=== PATIENT | female | born 1960 | race American Indian/Alaskan Native ===

== ENCOUNTER 2019-01-18 12:19 | Emergency (ER) | payer MEDICAID ==
--- NOTE | 2019-01-18 12:57 | Event Note ---
ED Screening Note ED Screening Note: pt states that she had a fall states that her knee gave out states she had a knee replacement by Dr. Guzman at [place] in September 2018 c/o right knee pain This initial assessment/diagnostic orders/clinical plan/treatment(s) is/are subject to change based on patients health status, clinical progression and re- assessment by fellow clinical providers in the ED. Further treatment and workup at subsequent clinical providers discretion. Patient/guardian urged not to elope from the ED as their condition may be serious if not clinically assessed and managed. Initial orders include: XR of the right knee
--- NOTE | 2019-01-18 13:44 | XRay Report ---
RIGHT KNEE 3 VIEW(S) INDICATION / CLINICAL INFORMATION: fall, right knee pain, hx of arthroplasty COMPARISON: None available. FINDINGS: Total knee arthroplasty is in satisfactory position and alignment without periprosthetic fracture or evidence of loosening or osteolysis. No acute abnormality seen. Signer Name: Alejandro Banks MD Signed: 01/18/2019 1:40 PM Workstation Name: [id number]
[2019-01-18] MEDS ORDERED: IBUPROFEN 600 MG TAB PO ONE (15:14)
[2019-01-18] MEDS ORDERED: ACETAMINOPHEN 325 MG TAB PO ONE (15:14)
--- NOTE | 2019-01-18 15:14 | Event Note ---
Date of service: 01/18/19 Face to Face: 58-year-old female presenting with right mechanical knee pain after mechanical fall. She is afebrile and clinically sober. Muscular compartments are soft. there is no facial droop. The tongue is midline. Extraocular movements are intact bilaterally. There is 5 out of 5 strength in bilateral upper and lower extremities. Sensation is intact to light touch bilateral upper and lower extremities. 2+ pulses noted in the bilateral upper and lower extremities. There is no palpable cord. negative Homans sign. Muscular compartments are soft. The pelvis is stable. X-ray knee shows no fracture or dislocation. Patient is neurovascularly intact. She does not appear to have an emergent medical condition at this time. She reports that she can tolerate ibuprofen and NSAIDs. Weightbearing as tolerated, crutches as needed, bulky Amador if needed, outpatient orthopedics or primary care follow-up Vital Signs 01/18/19 01/18/19 01/18/19 12:40 14:00 15:49 Temperature 97.6 F Pulse Rate 67 70 72 Respiratory 20 19 19 Rate Blood Pressure 108/38 Blood Pressure 110/68 112/72 [Left] O2 Sat by Pulse 97 97 97 Oximetry
--- NOTE | 2019-01-18 15:22 | Emergency Department Report ---
ED Fall HPI - General Chief Complaint: Fall Stated Complaint: FALL Time Seen by Provider: 01/18/19 12:56 Source: patient Mode of arrival: Ambulatory - History of Present Illness Initial Comments: 58 year old -[place] Citizen female presents to the emergency room complaining of frequent falls. Patient states she had fallen on she had fallen Sunday and a fall today. Patient reports that her knee just gave out. Patient reports that she had a total knee replacement 2019 sometime around March or April. Patient states she did go to physical therapy. She has had any recent follow-up. She reports she's been taking ibuprofen last dose was last night did not help. Patient reports her pain is 8 out of 10 on the right knee. She has a past medical history schizophrenia, anxiety and takes Seroquel and Xanax. Complaint: fall Onset/Timin -: days(s) When Fall Occurred: recurrent falls Fall Witnessed: no Place Fall Occurred: home Loss of Consciousness: none Prolonged Down Time?: no Location - Extremities: Right: Knee Severity: severe Severity scale (0 -10): 8 Quality: sharp Context: history of frequent falls Associated Symptoms: denies - Related Data Allergies Allergy/AdvReac Type Severity Reaction Status Date / Time aspirin AdvReac Hives Verified 01/18/19 12:39 ED Review of Systems ROS: Stated complaint: FALL Other details as noted in HPI Comment: All other systems reviewed and negative ED Past Medical Hx - Past Medical History Previous Medical History?: No - Surgical History Past Surgical History?: No - Social History Smoking Status: Current Every Day Smoker Substance Use Type: None ED Physical Exam - General Limitations: No Limitations General appearance: alert, in no apparent distress - Head Head exam: Present: atraumatic, normocephalic - Eye Eye exam: Present: normal appearance - ENT ENT exam: Present: mucous membranes moist - Neck Neck exam: Present: normal inspection - Respiratory Respiratory exam: Present: normal lung sounds bilaterally. Absent: respiratory distress - Cardiovascular Cardiovascular Exam: Present: regular rate, normal rhythm. Absent: systolic murmur, diastolic murmur, rubs, gallop - Expanded Lower Extremity Exam Right Knee exam: Present: tenderness. Absent: swelling, abrasion, laceration, ecchymosis, deformity Neuro vascular tendon exam: Present: no vascular compromise - Back Exam Back exam: Present: normal inspection - Neurological Exam Neurological exam: Present: alert, oriented X3 - Psychiatric Psychiatric exam: Present: normal affect, normal mood - Skin Skin exam: Present: warm, dry, intact, normal color. Absent: rash ED Course Vital Signs 01/18/19 12:40 Temperature 97.6 F Pulse Rate 67 Respiratory 20 Rate Blood Pressure 108/38 O2 Sat by Pulse 97 Oximetry ED Medical Decision Making - Radiology Data Radiology results: report reviewed Patient: CHRISTELLE JOHN MR#: [id number] : 1960 Acct:[id number] Age/Sex: 58 / F ADM Date: 01/18/19 Loc: ED Attending Dr: Ordering Physician: GUILLERMO FERNANDO Date of Service: 01/18/19 Procedure(s): XR knee 3V RT Accession Number(s): [id number] cc: GUILLERMO FERNANDO Fluoro Time In Minutes: RIGHT KNEE 3 VIEW(S) INDICATION / CLINICAL INFORMATION: fall, right knee pain, hx of arthroplasty COMPARISON: None available. FINDINGS: Total knee arthroplasty is in satisfactory position and alignment without periprosthetic fracture or evidence of loosening or osteolysis. No acute abnormality seen. Signer Name: Alejandro Banks MD Signed: 01/18/2019 1:40 PM Workstation Name: [id number] Transcribed By: DMB Dictated By: Alejandro Banks MD Electronically Authenticated By: Alejandro Banks MD Signed Date/Time: 01/18/19 1340 DD/ 1335 TD/TT: - Medical Decision Making 58 year old -[place] Citizen female presents to the emergency room complaining of frequent falls. Patient states she had fallen on she had fallen Sunday and a fall today. Patient reports that her knee just gave out. Patient reports that she had a total knee replacement 2019 sometime around March or April. Patient states she did go to physical therapy. She has had any recent follow-up. She reports she's been taking ibuprofen last dose was last night did not help. Patient reports her pain is 8 out of 10 on the right knee. She has a past medical history schizophrenia, anxiety and takes Seroquel and Xanax. Sprays were negative for any acute findings. Patient placed on crutches bulky dressing with Abdias bandage and to follow-up with her orthopedic provider. Discussed the patient she can take [id number] Tylenol and/or ibuprofen or Aleve for pain management. Critical care attestation.: If time is entered above; I have spent that time in minutes in the direct care of this critically ill patient, excluding procedure time. ED Disposition Clinical Impression: Severely overweight, Right anterior knee pain, Falls frequently Disposition: - TO HOME OR SELFCARE Is pt being admited?: No Does the pt Need Aspirin: No Condition: Stable Instructions: Arthralgia (ED), Fall Prevention (ED) Additional Instructions: You can take [id number] Tylenol and/or ibuprofen or Aleve for pain management. Follow-up with orthopedic provider the next 5-7 days if symptoms persist or gets worse. Please use crutches as shown. Referrals: Your ,Orthopedic [Other] - 3-5 Days
[2019-01-18 15:51] VITALS: BP 112/72
== END 2019-01-18 15:53 | disposition home or self-care (01) ==
LOC: ED 12:19
DX: M25.561 Pain in right knee (principal); W18.30XA Fall on same level, unspecified, initial encounter; Z91.81 History of falling; Y93.89 Activity, other specified; Y92.89 Other specified places as the place of occurrence of the external cause; Y99.8 Other external cause status

== ENCOUNTER 2019-07-25 13:50 | Emergency (ER) | payer MEDICAID ==
[2019-07-25 13:58] VITALS: BP 148/76
--- NOTE | 2019-07-25 14:05 | Emergency Department Report ---
ED Female HPI - General Chief complaint: Urogenital-Female Stated complaint: BACK PAIN Time Seen by Provider: 07/25/19 14:00 Source: patient Mode of arrival: Ambulatory Limitations: No Limitations - History of Present Illness Initial comments: pt is a 59 yo female who presents to the ED with c/o lower back pain that began a week ago. she has urinary frequency, urinary urgency. she has suprapubic pressure with urination. she denies any dark urine, odor to urine, or dysuria. she denies any fall or injury. she denies any numbness or weakness. she states she has been taking naproxen and aleve. PSHx total knee, appendectomy, cholecystectomy. PMHx asthma. allergy: aspirin. states she had normal BMs. - Related Data Previous Rx's Medication Instructions Recorded Last Taken Type Naproxen [Naprosyn TAB] 500 mg PO BID PRN #14 tablet 07/25/19 Unknown Rx methOCARBAMOL [Robaxin TAB] 500 mg PO BID PRN #12 tab 07/25/19 Unknown Rx Allergies Allergy/AdvReac Type Severity Reaction Status Date / Time aspirin AdvReac Hives Verified 07/25/19 13:51 ED Review of Systems ROS: Stated complaint: BACK PAIN Other details as noted in HPI Comment: All other systems reviewed and negative ED Past Medical Hx - Past Medical History Previous Medical History?: No - Surgical History Past Surgical History?: Yes Additional Surgical History: KNEE SURGERY - Social History Smoking Status: Current Every Day Smoker Substance Use Type: None - Medications Home Medications: Home Medications Medication Instructions Recorded Confirmed Last Taken Type Naproxen [Naprosyn TAB] 500 mg PO BID PRN #14 tablet 07/25/19 Unknown Rx methOCARBAMOL [Robaxin TAB] 500 mg PO BID PRN #12 tab 07/25/19 Unknown Rx ED Physical Exam - General Limitations: No Limitations General appearance: alert, in no apparent distress - Head Head exam: Present: atraumatic, normocephalic - Eye Eye exam: Present: normal appearance - ENT ENT exam: Present: mucous membranes moist - Neck Neck exam: Present: normal inspection, full ROM. Absent: tenderness - Respiratory Respiratory exam: Present: normal lung sounds bilaterally. Absent: respiratory distress, wheezes, rhonchi, stridor, chest wall tenderness, accessory muscle use, decreased breath sounds, prolonged expiratory - Cardiovascular Cardiovascular Exam: Present: regular rate, normal rhythm, normal heart sounds. Absent: systolic murmur, diastolic murmur, rubs, gallop - GI/Abdominal GI/Abdominal exam: Present: soft, normal bowel sounds. Absent: distended, tenderness, guarding, rebound, rigid - Back Exam Back exam: Present: normal inspection, full ROM, paraspinal tenderness (bilateral lumbar paraspinal muscular ttp, no midline C-spine, T-spine or L- spine ttp, no step offs, no deformities). Absent: CVA tenderness (R), CVA ten derness (L), vertebral tenderness - Neurological Exam Neurological exam: Present: alert, oriented X3, CN II-XII intact, normal gait. Absent: motor sensory deficit - Psychiatric Psychiatric exam: Present: normal affect, normal mood - Skin Skin exam: Present: warm, dry, intact ED Course Vital Signs 07/25/19 13:53 Temperature 98 F Pulse Rate 72 Respiratory 18 Rate Blood Pressure 148/76 O2 Sat by Pulse 95 Oximetry ED Medical Decision Making - Lab Data Lab Results 07/25/19 Range/Units 14:17 Urine Color Yellow (Yellow) Urine Turbidity Clear (Clear) Urine pH 6.0 (5.0-7.0) Ur Specific [place] 1.012 (1.003-1.030) Urine Protein <15 mg/dl (Negative) mg/dL Urine Glucose (UA) Neg (Negative) mg/dL Urine Ketones Neg (Negative) mg/dL Urine Blood Neg (Negative) Urine Nitrite Neg (Negative) Urine Bilirubin Neg (Negative) Urine Urobilinogen < 2.0 (<2.0) mg/dL Ur Leukocyte Esterase Neg (Negative) Urine WBC (Auto) < 1.0 (0.0-6.0) /HPF Urine RBC (Auto) < 1.0 (0.0-6.0) /HPF U Epithel Cells (Auto) 1.0 (0-13.0) /HPF - Medical Decision Making pt is a 59 yo female who presents to the ED with c/o lower back pain that began a week ago. she has urinary frequency, urinary urgency. she has suprapubic pressure with urination. she denies any dark urine, odor to urine, or dysuria. she denies any fall or injury. she denies any numbness or weakness. she states she has been taking naproxen and aleve. PSHx total knee, appendectomy, cholecystectomy. PMHx asthma. allergy: aspirin. states she had normal BMs. VSS. on exam: bilateral lumbar paraspinal muscular ttp, no midline C-spine, T-spine or L-spine ttp, no step offs, no deformities, no focal neuro deficits. UA is WNL. pt has no red flag warning signs of back pain, no trauma, no unexplained weight loss, no neuro deficits, no fever, no IVDU, no steroid use, no hx of cancer. pt given prescription for naproxen and robaxin. advised pt please take medication as prescribed. do not drive or operate heavy machinery while taking medication. may use ice pack, heating pad, rest, epsom salt bath. follow up with a primary care doctor. follow up with an orthopedic doctor. return to the emergency room for any new or worsening symptoms. Critical care attestation.: If time is entered above; I have spent that time in minutes in the direct care of this critically ill patient, excluding procedure time. ED Disposition Clinical Impression: Low back pain Qualifiers: Chronicity: acute Back pain laterality: bilateral Sciatica presence: without sciatica Qualified Code(s): M54.5 - Low back pain Disposition: TO HOME OR SELFCARE Is pt being admited?: No Does the pt Need Aspirin: No Condition: Stable Instructions: Low Back Strain (ED) Additional Instructions: please take medication as prescribed. do not drive or operate heavy machinery while taking medication. may use ice pack, heating pad, rest, epsom salt bath. follow up with a primary care doctor. follow up with an orthopedic doctor. return to the emergency room for any new or worsening symptoms. Prescriptions: Naproxen [Naprosyn TAB] 500 mg PO BID PRN #14 tablet PRN Reason: pain methOCARBAMOL [Robaxin TAB] 500 mg PO BID PRN #12 tab PRN Reason: pain Referrals: JACQUES ALBERT MD [Primary Care Provider] - 3-5 Days GUY NICHOLS MD [Staff Physician] - 3-5 Days [facility] [Provider Group] - 3-5 Days [facility] [Outside] - 3-5 Days [facility] [Outside] - 3-5 Days [facility] [Provider Group] - 3-5 Days Time of Disposition: 15:19 Print Language: UPPER SORBIAN
[2019-07-25 14:56] LABS: Bilirubin,Urine NEG (Negative); Blood,Urine NEG (Negative); Color,Urine Yellow (Yellow); Protein,Urine <15 mg/dL mg/dL (Negative); RBC,Urine < 1.0 /HPF (0.0-6.0); Urobilinogen,Urine < 2.0 mg/dL (<2.0); WBC,Urine < 1.0 /HPF (0.0-6.0)
== END 2019-07-25 15:26 | disposition home or self-care (01) ==
LOC: ED 13:50
DX: M54.5 Low back pain (principal); R35.0 Frequency of micturition; R39.15 Urgency of urination; F17.200 Nicotine dependence, unspecified, uncomplicated; Z88.6 Allergy status to analgesic agent; Z98.890 Other specified postprocedural states
CPT/HCPCS: 81001

== ENCOUNTER 2020-07-25 10:45 | Inpatient (IN) | payer MEDICAID ==
--- NOTE | 2020-07-25 11:04 | Emergency Department Report ---
HPI - General Time Seen by Provider: 07/25/20 10:57 - HPI HPI: 60-year-old female with history of schizophrenia and bipolar disorder brought in by EMS complaining of left facial pain and numbness as well as numbness of the left side of her body since yesterday afternoon. The patient's last known well time was at 2 PM yesterday. She says after that she took a nap and when she woke up she had hoarseness of her voice, left-sided facial pain and numbness, and left-sided numbness. She also says she has had new onset of a dry cough over the same period of time. Otherwise she denies experiencing any headache, visual changes, sore throat, dental pain, neck pain, chest pain, shortness of breath, abdominal pain, nausea/vomiting, dysuria, or any other complaints. ED Past Medical Hx - Past Medical History Previous Medical History?: Yes Additional medical history: Schizophrenia, Bipolar disorder - Surgical History Additional Surgical History: KNEE SURGERY - Social History Smoking Status: Current Every Day Smoker Substance Use Type: None - Medications Home Medications: Home Medications Medication Instructions Recorded Confirmed Last Taken Type Naproxen [Naprosyn TAB] 500 mg PO BID PRN #14 tablet 07/25/19 Unknown Rx methOCARBAMOL [Robaxin TAB] 500 mg PO BID PRN #12 tab 07/25/19 Unknown Rx ED Review of Systems ROS: Stated complaint: LEFT SIDE NUMBESS Other details as noted in HPI Physical Exam - Physical Exam Vital Signs: Vital Signs 07/25/20 11:49 Temperature 98.1 F Pulse Rate 60 Respiratory 20 Rate Blood Pressure 149/68 [l] O2 Sat by Pulse 97 Oximetry Physical Exam: GENERAL: Well developed and well nourished. No acute distress HEENT: Normocephalic. No obvious signs of trauma. Moist mucous membranes. EYES: Extraocular movements are intact. Pupils are equal round and reactive to light bilaterally NECK: Supple. Trachea is midline. LUNGS: Nonlabored breathing. Equal chest rise bilaterally. Clear to auscultation bilaterally. HEART/CARDIOVASCULAR: Regular rate and rhythm. No murmurs or rubs. ABDOMEN: Abdomen is soft and nondistended. There is no significant tenderness, guarding or rebound. SKIN: Skin is warm and dry NEURO: Patient is awake, alert, and oriented. ceo and founder II-XII grossly intact without any obvious facial droop. Hoarse sounding voice. There is left upper extremity drift as well as left lower extremity drift. There is loss of sensation to the left side of the face and left upper and lower extremities. NIHSS 6. MUSCULOSKELETAL: No obvious deformities. No significant tenderness. ED Medical Decision Making - Lab Data Result diagrams: 07/25/20 11:27 07/25/20 12:46 - EKG Data -: EKG Interpreted by De - EKG Data 07/25/20 12:02 Normal sinus rhythm. Normal axis. Normal intervals. No ectopy. No significant ST segment or T wave abnormalities. Low voltage EKG - Radiology Data CT head/brain wo con INDICATION: CODE STROKE Stroke symptoms LEFT SIDE WEAKNESS #[id number]. TECHNIQUE: Routine CT head without contrast. All CT scans at this location are performed using CT dose reduction for ALARA by means of automated exposure control. COMPARISON: None. FINDINGS: BRAIN / INTRACRANIAL CONTENTS: No acute hemorrhage, mass effect, midline shift, or hydrocephalus. No appreciable acute large territorial or lacunar infarct. No chronic infarct or focal atrophy. Normal brain volume and ventricular/sulcal size for age. Axial blood or fluid collection. ORBITS: No significant abnormality of visualized orbits. SINUSES / MASTOIDS: Near-complete opacification of the left maxillary antrum with subtle high attenuation could represent allergic fungal sinusitis. Mild mucosal thickening in the right maxillary antrum and sphenoid sinus. Patchy opacification of the left ethmoidal air cells. Mastoid air cells are clear. ADDITIONAL FINDINGS: None. IMPRESSION: 1. No acute intracranial abnormality. Consider further evaluation with noncontrast MR, as warranted. CRITICAL RESULT: Time of Discovery (FACILITY MAINTENANCE HELPER/CDT): 1030 Time of Communication (FACILITY MAINTENANCE HELPER/CDT): 1035 Licensed Practitioner Receiving Report: Dr. Gautam Valdovinos Read-Back Performed: Yes. Signer Name: Papito Carnes MD Signed: 07/25/2020 10:36 AM Workstation Name: [id number] CHEST 1 VIEW 07/25/2020 11:44 AM INDICATION / CLINICAL INFORMATION: cough. COMPARISON: 07/27/2012 FINDINGS: SUPPORT DEVICES: None. HEART / MEDIASTINUM: Stable. LUNGS / PLEURA: Artifact from overlying soft tissue obscures the lung bases. Low lung volumes without significant pulmonary or pleural abnormality. No pneumothorax. ADDITIONAL FINDINGS: No significant additional findings. IMPRESSION: 1. No acute findings. Signer Name: Papito Carnes MD Signed: 07/25/2020 11:06 AM Workstation Name: [id number] CT angio neck INDICATION / CLINICAL INFORMATION: 60 years Female; stroke sx lt side weak [id number] 100ml. TECHNIQUE: Thin cut axial images obtained through the head during IV bolus contrast administration. Sagittal, coronal, and 3 plane MIP reconstructions performed by the technologist. NASCET type criteria used evaluate stenoses. All CT scans at this location are performed using CT dose reduction for ALARA by means of automated exposure control. COMPARISON: None available. FINDINGS: CAROTID ARTERIES: There is motion as well as beam hardening resulting from the patient's body habitus and dense contrast within the adjacent venous structures at. However, there is no significant stenosis involving the the carotid arteries by NASCET criteria. VERTEBRAL ARTERIES: The proximal vertebral arteries are also obscured by the artifact. However, there is no clear evidence of significant focal stenosis involving visualized segments at. ARCH: There is developmental common origin of the brachiocephalic and left common carotid arteries. There is no significant stenosis of the arch vessels. ADDITIONAL FINDINGS: There is multilevel anterior osteophytic formation involving the structure cervical spine IMPRESSION: There is no significant focal stenosis involving cervical carotid or vertebral arteries by NASCET criteria. There was some delay in the dictation of this exam in that I was not initially notified. The study was dictated on an emergent basis once contacted. Signer Name: Andrew Garber MD Signed: 07/25/2020 12:06 PM Workstation Name: [id number] CT angio head INDICATION / CLINICAL INFORMATION: 60 years Female; stroke sx left side weakness omnipaque 350 100ml. TECHNIQUE: Thin cut axial images obtained through the head during IV bolus contrast administration. Sagittal, coronal, and 3 plane MIP reconstructions performed by the technologist. NASCET type criteria used evaluate stenoses. Automated exposure control utilized for radiation reduction purposes. COMPARISON: None available. FINDINGS: INTERNAL CAROTID ARTERIES: There is mild atherosclerotic calcification involving distal internal carotid arteries without significant focal stenosis by NASCET criteria. VERTEBROBASILAR SYSTEM: There is also no significant focal stenosis involving the vertebrobasilar system. CEREBRAL ARTERIES: The proximal cerebral arteries and adjacent segments demonstrate appropriate caliber. There is no clear CT evidence of large vessel occlusion. ANEURYSM: There is a 2 mm outpouching extending inferiorly from the clinoid segment of the left ICA. This finding may reflect an infundibulum though appears more proximal than expected for the posterior communicating artery and there is no clear evidence of emanating vessel. The findings be concerning for small aneurysm. ADDITIONAL FINDINGS: The dural venous opacify with contrast. There is moderate mucosal thickening within the left ethmoid and maxillary sinuses. Milder findings are noted within the remaining sinuses including the left sphenoid sinus. IMPRESSION: There is no clear CTA evidence of large vessel occlusion. There is a 2 cm outpouching extending inferiorly from the clinoid segment of the left ICA as detailed above. Signer Name: Andrew Garber MD Signed: 07/25/2020 12:14 PM Workstation Name: [id number] - Medical Decision Making 60-year-old female brought in with chief complaint of left-sided facial pain and numbness and hoarse voice since yesterday afternoon. Last known normal time was 2 PM yesterday after which the patient took a nap and woke up with the symptoms named in the HPI. On my initial assessment, patient was noted to have several neurologic deficits including sensation loss of the left side of the face and left upper and lower extremities, left upper extremity weakness with drift as well as left lower extremity weakness with drift that hits the bed. She does not have any obvious facial droop however. She does have hoarseness of her voice which could be secondary to dysarthria. At this point, I called a stroke alert and initiated full order set with Noncon CT of the head as well as CTA of the head and neck given the extent of her deficits and last known normal time which is approximately 21 hours ago to assess for evidence of large vessel occlusion. Teleneurology consult called. At 11:15 AM I spoke over the telephone with Dr. Braswell of teleneurology who has seen and assessed the patient. He also saw the same deficits that I did with the addition that he detected very mild left-sided facial droop. He reviewed the noncontrast CT of the head and there is no evidence of intracranial bleeding. He recommends administration of aspirin 325 mg and atorvastatin 80 mg. Not eligible for TPA given time of symptom onset. We will follow up the results of the CTA head/neck. However, after I got off the phone, I discovered that the patient has an allergy to aspirin which she says causes her whole body hives. We will therefore hold off on ordering aspirin now and will instead give Plavix 300mg PO x 1 (to be followed by 75mg daily thereafter). Soon thereafter I spoke with the radiologist, Dr. Carnes, who reviewed the noncontrast CT of the head finds no evidence of intracranial bleeding or evidence of large infarct, although the possibility of acute infarct is not ruled out by this study. I spoke with Dr. Braswell again at 11:38 AM he reviewed the CTA of the head and neck and does not find any evidence of large vessel occlusion which he states is consistent with the patient's symptoms. He confirmed that he would recommend Plavix 300 mg x 1 instead of aspirin given allergy. He recommends admission to the hospitalist for further work-up and management. At 12:30 PM, labs have returned and reveal no significant leukocytosis or anemia. There is only one electrolyte abnormality in the form of mild hyperkalemia of 5.7. However there are no EKG findings of hyperkalemia. Otherwise there are no electrolyte abnormalities and the patient's kidney fu nction is normal. We will repeat a potassium level given that this result may be an error. Repeat potassium level is 4.6 which is more in line with what would be expected by normal variability. CTA of the head and neck has finally been read by the neuroradiologist and there is no evidence of large vessel occlusion. Admit to the hospitalist for further work-up/management. I spoke with Dr. Mendes who accepts the patient for admission and will assume care. Urinalysis is still pending. Critical Care Time: Yes (35 minutes) Critical care time in (mins) excluding proc time.: 35 Critical care attestation.: If time is entered above; I have spent that time in minutes in the direct care of this critically ill patient, excluding procedure time. Critical care time was spent in the evaluation, assessment, and management of acute stroke ED Disposition Clinical Impression: Stroke Qualifiers: CVA mechanism: unspecified Qualified Code(s): I63.9 - Cerebral infarction, unspecified Disposition: DC-09 OP ADMIT IP TO THIS HOSP Is pt being admited?: Yes Condition: Serious
[2020-07-25] MEDS ORDERED: CLOPIDOGREL 300 MG TAB PO STA (11:34)
--- NOTE | 2020-07-25 11:40 | Consultation ---
History of Present Illness History of present illness: [facility] Consult Note # Demographics Consult Type: Acute Stroke Level 1 (0-4.5 hrs) Patient Location: Emergency Room First Name: eben Last Name: livia Date of : 1960 Age: 60 Gender: Female Time of Initial Page (): 07/25/2020, 11:00 Time of Return Call ( Time): 07/25/2020, 11:00 # HPI Chief Complaint: facial droop History: 60F with schizophrenia/bipolar presents with facial weakness. Symptoms started yesterday at approximately 2 PM. Also feels numb on the left side. Allergic to aspirin. # Scores Time of exam and NIHSS (): 07/25/2020, 11:02 Level of Consciousness 1a: [0] = Alert; keenly responsive LOC Questions 1b: [0] = Answers both questions correctly LOC Commands 1c: [0] = Performs both tasks correctly Best Gaze 2: [0] = Normal Visual 3: [0] = No visual loss Facial Palsy 4: [1] = Minor paralysis Motor Arm Left 5a: [1] = Drift Motor Arm Right 5b: [0] = No drift Motor Leg Left 6a: [2] = Some effort against gravity Motor Leg Right 6b: [0] = No drift Limb Ataxia 7: [0] = Absent Sensory 8: [1] = Evew-zv-ypvessbg sensory loss Best Language 9: [0] = No aphasia Dysarthria 10: [1] = Vgry-dn-lhldhywg dysarthria Extinction and Inattention 11: [0] = No abnormality NIHSS Total: 6 # Data Time Head CT personally read by me (): 07/25/2020, 11:[address]: no bleed preliminarily reviewed by me, please refer to radiology read for official reading CTA Head: no large vessel occlusion preliminarily reviewed by me, please refer to radiology read for official reading CTA Neck: patent vessels preliminarily reviewed by me, please refer to radiology read for official reading # Assessment Impression: Ischemic Stroke (Acute) # Plan Thrombolytic/Intervention: NOT IV Thrombolytic or IA Intervention Thrombolytic Exclusion: > 4.5 hours Intraarterial Exclusion: no large vessel occlusion (LVO) Target Blood Pressure: SBP < 220 DBP < 105 Labs: hemoglobin A1c lipid panel Imaging: (urgency: routine): MRI Brain without contrast Diagnostic Test: echo with bubble study Therapy/Evaluation: PT/OT evaluation speech/swallow consultation Medication: Plavix 300 then 75 daily, atorvastatin 80 then tailor dose to LDL < 70 goal DVT Prophylaxis: SCD chemical DVT prophylaxis Other: permissive hypertension telemetry monitoring I have discussed my recommendations with the referring provider Disposition: admit # Logistics Telemedicine: Interactive 2 way audio and visual telecommunication technology was utilized during this visit Electronically signed at 07/25/2020 11:39 (Eastern Time) by French Wagner MD Medications and Allergies Allergies Allergy/AdvReac Type Severity Reaction Status Date / Time aspirin AdvReac Hives Verified 07/25/19 13:51 Home Medications Medication Instructions Recorded Confirmed Last Taken Type Naproxen [Naprosyn TAB] 500 mg PO BID PRN #14 tablet 07/25/19 Unknown Rx methOCARBAMOL [Robaxin TAB] 500 mg PO BID PRN #12 tab 07/25/19 Unknown Rx
--- NOTE | 2020-07-25 11:40 | Cat Scan Report ---
CT head/brain wo con INDICATION: CODE STROKE Stroke symptoms LEFT SIDE WEAKNESS #[id number]. TECHNIQUE: Routine CT head without contrast. All CT scans at this location are performed using CT dos e reduction for ALARA by means of automated exposure control. COMPARISON: None. FINDINGS: BRAIN / INTRACRANIAL CONTENTS: No acute hemorrhage, mass effect, midline shift, or hydrocephalus. No appreciable acute large territorial or lacunar infarct. No chronic infarct or focal atrophy. Normal b rain volume and ventricular/sulcal size for age. Axial blood or fluid collection. ORBITS: No significant abnormality of visualized orbits. SINUSES / MASTOIDS: Near-complete opacification of the left maxillary antrum with subtle high attenua tion could represent allergic fungal sinusitis. Mild mucosal thickening in the right maxillary antrum and sphenoid sinus. Patchy opacification of the left ethmoidal air cells. Mastoid air cells are robin r. ADDITIONAL FINDINGS: None. IMPRESSION: 1. No acute intracranial abnormality. Consider further evaluation with noncontrast MR, as warranted. CRITICAL RESULT: Time of Discovery (ENTRY LEVEL WEB DEVELOPER/CDT): 1030 Time of Communication (ENTRY LEVEL WEB DEVELOPER/CDT): 1035 Licensed Practitioner Receiving Report: Dr. Gautam Valdovinos Read-Back Performed: Yes. Signer Name: Papito Carnes MD Signed: 07/25/2020 11:36 AM Workstation Name: [id number]
[2020-07-25 11:57] LABS: Basophils # (Auto) 0.1 K/mm3 (0.0-0.1); Eosinophils # (Auto) 0.3 K/mm3 (0.0-0.4); Eosinophils % (Auto) 3.7 % (0.0-4.3); Hematocrit 36.1 % (30.3-42.9); Hemoglobin 12.3 gm/dl (10.1-14.3); Lymphocytes # (Auto) 2.7 K/mm3 (1.2-5.4); Mean Corpuscular HGB Conc 34 % (30-34); Mean Corpuscular Volume 79 fl (79-97); Monocytes # (Auto) 0.5 K/mm3 (0.0-0.8); Monocytes % (Auto) 6.6 % (0.0-7.3); Platelet Count 210 K/mm3 (140-440); Red Blood Count 4.55 M/mm3 (3.65-5.03)
[2020-07-25 11:58] LABS: INR 0.9 (0.87-1.13)
[2020-07-25 11:59] LABS: Partial Thromboplastin Time 26.7 Sec. (24.2-36.6); Thrombin Time 17.6 Sec. (15.1-19.6)
[2020-07-25 12:04] LABS: Creatine Kinase MB 1.3 ng/mL (0.0-4.0)
[2020-07-25 12:05] LABS: Alanine Aminotransferase 13 units/L (7-56); Albumin 3.5 g/dL (3.9-5); Blood Urea Nitrogen 9 mg/dL (7-17); Calcium 8.5 mg/dL (8.4-10.2); Hemolysis Index 148
[2020-07-25 12:07] LABS: BUN/Creatinine Ratio 13
--- NOTE | 2020-07-25 12:11 | XRay Report ---
CHEST 1 VIEW 07/25/2020 11:44 AM INDICATION / CLINICAL INFORMATION: cough. COMPARISON: 07/27/2012 FINDINGS: SUPPORT DEVICES: None. HEART / MEDIASTINUM: Stable. LUNGS / PLEURA: Artifact from overlying soft tissue obscures the lung bases. Low lung volumes without significant pulmonary or pleural abnormality. No pneumothorax. ADDITIONAL FINDINGS: No significant additional findings. IMPRESSION: 1. No acute findings. Signer Name: Papito Carnes MD Signed: 07/25/2020 12:06 PM Workstation Name: [id number]
--- NOTE | 2020-07-25 13:10 | Cat Scan Report ---
CT angio neck INDICATION / CLINICAL INFORMATION: 60 years Female; stroke sx lt side weak [id number] 100ml. TECHNIQUE: Thin cut axial images obtained through the head during IV bolus contrast administration. S agittal, coronal, and 3 plane MIP reconstructions performed by the technologist. NASCET type criteria used evaluate stenoses. All CT scans at this location are performed using CT dose reduction for ALAR A by means of automated exposure control. COMPARISON: None available. FINDINGS: CAROTID ARTERIES: There is motion as well as beam hardening resulting from the patient's body habitus and dense contrast within the adjacent venous structures at. However, there is no significant stenos is involving the the carotid arteries by NASCET criteria. VERTEBRAL ARTERIES: The proximal vertebral arteries are also obscured by the artifact. However, there is no clear evidence of significant focal stenosis involving visualized segments at. ARCH: There is developmental common origin of the brachiocephalic and left common carotid arteries. T here is no significant stenosis of the arch vessels. ADDITIONAL FINDINGS: There is multilevel anterior osteophytic formation involving the structure cervi jocelyne spine IMPRESSION: There is no significant focal stenosis involving cervical carotid or vertebral arteries by NASCET cri teria. There was some delay in the dictation of this exam in that I was not initially notified. The study wa s dictated on an emergent basis once contacted. Signer Name: Andrew Garber MD Signed: 07/25/2020 1:06 PM Workstation Name: [id number]
--- NOTE | 2020-07-25 13:19 | Cat Scan Report ---
CT angio head INDICATION / CLINICAL INFORMATION: 60 years Female; stroke sx left side weakness omnipaque 350 100ml. TECHNIQUE: Thin cut axial images obtained through the head during IV bolus contrast administration. S agittal, coronal, and 3 plane MIP reconstructions performed by the technologist. NASCET type criteria used evaluate stenoses. Automated exposure control utilized for radiation reduction purposes. COMPARISON: None available. FINDINGS: INTERNAL CAROTID ARTERIES: There is mild atherosclerotic calcification involving distal internal dao tid arteries without significant focal stenosis by NASCET criteria. VERTEBROBASILAR SYSTEM: There is also no significant focal stenosis involving the vertebrobasilar sys tem. CEREBRAL ARTERIES: The proximal cerebral arteries and adjacent segments demonstrate appropriate calib er. There is no clear CT evidence of large vessel occlusion. ANEURYSM: There is a 2 mm outpouching extending inferiorly from the clinoid segment of the left ICA. This finding may reflect an infundibulum though appears more proximal than expected for the posterior communicating artery and there is no clear evidence of emanating vessel. The findings be concerning for small aneurysm. ADDITIONAL FINDINGS: The dural venous opacify with contrast. There is moderate mucosal thickening wit hin the left ethmoid and maxillary sinuses. Milder findings are noted within the remaining sinuses in cluding the left sphenoid sinus. IMPRESSION: There is no clear CTA evidence of large vessel occlusion. There is a 2 cm outpouching extending inferiorly from the clinoid segment of the left ICA as detailed above. Signer Name: Andrew Garber MD Signed: 07/25/2020 1:14 PM Workstation Name: [id number]
[2020-07-25] MEDS ORDERED: ONDANSETRON 4 MG/2 ML INJ IV PRN (13:24)
[2020-07-25] MEDS ORDERED: ACETAMINOPHEN 325 MG TAB PO PRN (13:24)
[2020-07-25] MEDS ORDERED: METOCLOPRAMIDE 10 MG TAB PO PRN (13:24)
[2020-07-25] MEDS ORDERED: PROMETHAZINE 25 MG RECT SUPP PR PRN (13:24)
[2020-07-25] MEDS ORDERED: MAGNESIUM HYDROXIDE (MOM) ORAL LIQD UDC PO PRN (13:24)
--- NOTE | 2020-07-25 13:24 | History and Physical Report ---
History of Present Illness Chief complaint: I am weak History of present illness: 60 YO Female with Schizophrenia, Bipolar Disorder, Nicotine Dependence presents to ED for evaluation. Pt reports"Im weak". Pt states that she was in her usual state of health and experienced a sudden onset of left facial numbness with co ncomitant pain, left-sided weakness at approximate 1400 hrs. yesterday. Patient states that she awoke from sleep this morning with persistent symptoms. EMS was notified and upon arrival the patient was found to be in distress with a neurologic deficit. A code stroke was called and the patient was transported to [facility] for further care and evaluation of the aforementioned symptoms. The patient was seen and evaluated in the emergency department. All lab and imaging studies reviewed. Patient found to have a neurologic deficit and a code stroke was called. The patient was initiated on CVA protocol. The patient was placed in observation status and admitted to telemetry and initiated on stroke protocol care. Telemetry neurology consulted in ED. Patient denies fever, chills, chest pain, palpitation, productive cough, skin rash, recent ill contacts, or known exposure to COVID-19. No prior admission for review. All medication listed at time of admission has been reconciled. Advanced care planning conducted in ED. Past History Past Medical History: other (See HPI) Past Surgical History: total knee replacement Social history: , lives with family, smoking Family history: hypertension Medications and Allergies Allergies Allergy/AdvReac Type Severity Reaction Status Date / Time aspirin Allergy Hives Verified 07/25/20 13:35 Home Medications Medication Instructions Recorded Confirmed Last Taken Type Naproxen [Naprosyn TAB] 500 mg PO BID PRN #14 tablet 07/25/19 Unknown Rx methOCARBAMOL [Robaxin TAB] 500 mg PO BID PRN #12 tab 07/25/19 Unknown Rx Review of Systems Constitutional: no weight loss, no weight gain, no fever, no chills, no sweats Ears, nose, mouth and throat: no ear pain, no nose pain, no nasal discharge Breasts: no change in shape, no swelling, no mass Cardiovascular: no orthopnea, no palpitations, no rapid/irregular heart beat, no edema Respiratory: no cough, no cough with sputum Gastrointestinal: no abdominal pain, no vomiting, no diarrhea, no constipation, no hematemesis Genitourinary Female: no pelvic pain, no flank pain, no dysuria, no urinary frequency, no urgency Rectal: no pain, no incontinence, no bleeding Musculoskeletal: no neck stiffness, no neck pain, no shooting arm pain, no arm numbness/tingling, no shooting leg pain Integumentary: no rash, no redness, no sores, no wounds Neurological: weakness, numbness, change in speech, gait dysfunction, motor disturbance, no head injury, no ataxia, no migraines Psychiatric: no anxiety, no memory loss, no change in sleep habits, no sleep disturbances, no hypersomnia, no change in appetite Endocrine: no cold intolerance, no polyphagia, no excessive thirst, no polydipsia, no polyuria, no excessive sweating Hematologic/Lymphatic: no easy bruising, no easy bleeding, no lymphedema Allergic/Immunologic: no urticaria, no allergic rhinitis, no wheezing, no persistent infections, no anaphylaxis Exam - Constitutional Vitals: Temp Pulse Resp BP Pulse Ox 98.1 F 60 20 149/68 97 07/25/20 11:49 07/25/20 11:49 07/25/20 11:49 07/25/20 11:49 07/25/20 11:49 General appearance: Present: mild distress - EENT Eyes: Present: PERRL ENT: hearing intact, clear oral mucosa - Neck Neck: Present: supple, normal ROM - Respiratory Respiratory effort: normal Respiratory: bilateral: CTA - Cardiovascular Heart Sounds: Present: S1 & S2. Absent: rub, click - Extremities Extremities: pulses symmetrical, No edema Peripheral Pulses: within normal limits - Abdominal General gastrointestinal: Present: soft, non-tender, non-distended, normal bowel sounds Female genitourinary: Present: normal - Integumentary Integumentary: Present: clear, warm, dry - Musculoskeletal Musculoskeletal: left sided weakness - Psychiatric Psychiatric: appropriate mood/affect, intact judgment & insight - Neurologic Neurologic: CNII-XII intact, moves all extremities HEART Score - HEART Score Troponin: Troponin T < 0.010 ng/mL (0.00-0.029) 07/25/20 11:27 Results - Labs CBC & Chem 7: 07/25/20 11:27 07/25/20 12:46 Labs: Abnormal lab results 07/25/20 07/25/20 Range/Units 11:27 11:27 MCH 27 L (28-32) pg RDW 16.0 H (13.2-15.2) % Lymph % (Auto) 36.0 H (13.4-35.0) % Potassium 5.7 H (3.6-5.0) mmol/L Total Creatine Kinase 160 H (30-135) units/L Total Protein 6.0 L (6.3-8.2) g/dL Albumin 3.5 L (3.9-5) g/dL Assessment and Plan - Patient Problems (1) CVA (cerebral vascular accident) Current Visit: Yes Status: Acute Plan to address problem: CVA protocol: CT head, CTA head, CTA neck, seizure precautions, aspiration precautions, fall precautions, antiplatelet Therapy, lipid panel, statin therapy, physical therapy consulted, Occupational Therapy consulted, speech therapy consulted, echocardiogram, carotid Doppler. (2) Depression Current Visit: Yes Status: Acute Plan to address problem: Continue medical management. Outpatient psychiatry follow-up. (3) Schizophrenia Current Visit: Yes Status: Acute Qualifiers: Schizophrenia type: unspecified Qualified Code(s): F20.9 - Schizophrenia, unspecified Plan to address problem: Outpatient psychiatry follow-up, continue current management. (4) Nicotine dependence Current Visit: Yes Status: Acute Qualifiers: Nicotine product type: cigarettes Substance use status: in withdrawal Qualified Code(s): F17.213 - Nicotine dependence, cigarettes, with withdrawal Plan to address problem: Smoking cessation counseling, supportive care, behavior change counseling, +15 minutes. (5) DVT prophylaxis Current Visit: Yes Status: Acute Plan to address problem: SCD to bilateral lower extremities while in bed, patient is ambulatory (6) Advance care planning Current Visit: Yes Status: Acute Plan to address problem: Disease education conducted, care plan discussed, prognosis discussed, patient is full code, patient knowledges understanding agree with care plan, +30 minutes.
[2020-07-26] MEDS ORDERED: guaiFENesin 100 MG/5 ML ORAL LIQD PO PRN (00:30)
[2020-07-26 06:06] LABS: Chol/HDL Ratio 5.53 %
--- NOTE | 2020-07-26 09:29 | Progress Note ---
Assessment and Plan Assessment and plan: CVA. Depression Schizophrenia Nicotine dependence DVT prophylaxis 07/26/2020. CTA of the head and neck revealed no significant focal stenosis involving cervical carotid or vertebral arteries. Head CT scan also negative. Neurology consulted. Follow-up echocardiogram and carotid Dopplers. Consider MRI per neurology recommendations. PT/OT/ST. Psychiatric evaluation for depression and schizophrenia. Continue Plavix and Lipitor. History Interval history: 60 YO Female with Schizophrenia, Bipolar Disorder, Nicotine Dependence presents with complaints of sudden onset of left facial numbness with concomitant pain, left-sided weakness at approximate 1400 hrs on the day prior to admission. Hospitalist Physical - Constitutional Vitals: Temp Pulse Resp BP Pulse Ox 98.4 F 56 L 18 149/63 92 07/26/20 07:55 07/26/20 07:55 07/26/20 07:55 07/26/20 07:55 07/26/20 07:55 General appearance: Present: no acute distress - EENT Eyes: Present: PERRL, EOM intact ENT: hearing intact, clear oral mucosa, dentition normal - Neck Neck: Present: supple, normal ROM - Respiratory Respiratory effort: normal Respiratory: bilateral: CTA - Cardiovascular Rhythm: regular Heart Sounds: Present: S1 & S2. Absent: gallop, rub - Extremities Extremities: no ischemia, No edema, Full ROM - Abdominal General gastrointestinal: soft, non-tender, non-distended, normal bowel sounds - Integumentary Integumentary: Present: clear, warm, dry - Neurologic Neurologic: CNII-XII intact, moves all extremities HEART Score - HEART Score Troponin: Troponin T < 0.010 ng/mL (0.00-0.029) 07/25/20 11:27 Results - Labs CBC & Chem 7: 07/25/20 11:27 07/25/20 12:46 Labs: Laboratory Last Values WBC 7.6 K/mm3 (4.5-11.0) 07/25/20 11:27 RBC 4.55 M/mm3 (3.65-5.03) 07/25/20 11:27 Hgb 12.3 gm/dl (10.1-14.3) 07/25/20 11:27 Hct 36.1 % (30.3-42.9) 07/25/20 11:27 MCV 79 fl (79-97) 07/25/20 11:27 MCH 27 pg (28-32) L 07/25/20 11:27 MCHC 34 % (30-34) 07/25/20 11:27 RDW 16.0 % (13.2-15.2) H 07/25/20 11:27 Plt Count 210 K/mm3 (140-440) 07/25/20 11:27 Lymph % (Auto) 36.0 % (13.4-35.0) H 07/25/20 11:27 Hawkins % (Auto) 6.6 % (0.0-7.3) 07/25/20 11:27 Eos % (Auto) 3.7 % (0.0-4.3) 07/25/20 11: Baso % (Auto) 1.0 % (0.0-1.8) 07/25/20 11: Lymph # (Auto) 2.7 K/mm3 (1.2-5.4) 07/25/20 11: Hawkins # (Auto) 0.5 K/mm3 (0.0-0.8) 07/25/20 11: Eos # (Auto) 0.3 K/mm3 (0.0-0.4) 07/25/20 11: Baso # (Auto) 0.1 K/mm3 (0.0-0.1) 07/25/20 11: Seg Neutrophils % 52.7 % (40.0-70.0) 07/25/20 11: Seg Neutrophils # 4.0 K/mm3 (1.8-7.7) 07/25/20 11:27 PT 12.7 Sec. (12.2-14.9) 07/25/20 11:27 INR 0.90 (0.87-1.13) 07/25/20 11:27 APTT 26.7 Sec. (24.2-36.6) 07/25/20 11: Thrombin Time 17.6 Sec. (15.1-19.6) 07/25/20 11:27 Sodium 138 mmol/L (137-145) 07/25/20 11:27 Potassium 4.6 mmol/L (3.6-5.0) 07/25/20 12:46 Chloride 104.0 mmol/L (98-107) 07/25/20 11:27 Carbon Dioxide 26 mmol/L (22-30) 07/25/20 11:27 Anion Gap 14 mmol/L 07/25/20 11:27 BUN 9 mg/dL (7-17) 07/25/20 11:27 Creatinine 0.7 mg/dL (0.6-1.2) 07/25/20 11:27 Estimated GFR > 60 ml/min 07/25/20 11:27 BUN/Creatinine Ratio 13 % 07/25/20 11:27 Glucose 87 mg/dL (65-100) 07/25/20 11:27 POC Glucose 112 mg/dL (70-105) H 07/26/20 07:38 Calcium 8.5 mg/dL (8.4-10.2) 07/25/20 11:27 Total Bilirubin 0.20 mg/dL (0.1-1.2) 07/25/20 11:27 AST 18 units/L (5-40) 07/25/20 11:27 ALT 13 units/L (7-56) 07/25/20 11:27 Alkaline Phosphatase 129 units/L (35-129) 07/25/20 11:27 Total Creatine Kinase 160 units/L (30-135) H 07/25/20 11:27 CK-MB (CK-2) 1.3 ng/mL (0.0-4.0) 07/25/20 11:27 CK-MB (CK-2) Rel Index 0.8 (0-4) 07/25/20 11:27 Troponin T < 0.010 ng/mL (0.00-0.029) 07/25/20 11:27 Total Protein 6.0 g/dL (6.3-8.2) L 07/25/20 11:27 Albumin 3.5 g/dL (3.9-5) L 07/25/20 11:27 Albumin/Globulin Ratio 1.4 % 07/25/20 11:27 Triglycerides 368 mg/dL (2-149) H 07/26/20 04:06 Cholesterol 166 mg/dL (50-199) 07/26/20 04:06 LDL Cholesterol Direct 66 mg/dL (50-130) 07/26/20 04:06 HDL Cholesterol 30 mg/dL (40-59) L 07/26/20 04:06 Cholesterol/HDL Ratio 5.53 % 07/26/20 04:06 Hernandez/IV: Voiding Method External Female Catheter Active Medications - Current Medications Current Medications: Generic Name Dose Route Start Last Admin Trade Name Freq PRN Reason Stop Dose Admin Acetaminophen 650 mg 07/25/20 13:24 Acetaminophen 325 Mg Tab PO Q4H PRN Pain, Mild (1-3) Atorvastatin Calcium 40 mg 07/25/20 22:00 07/26/20 00:38 Atorvastatin 40 Mg Tab PO 40 mg QHS EDITA Administration Bisacodyl 10 mg 07/25/20 13:24 Bisacodyl 10 Mg Rect Supp IN QDAY PRN Constipation Clopidogrel Bisulfate 75 mg 07/26/20 10:00 Clopidogrel 75 Mg Tab PO QDAY EDITA Guaifenesin 200 mg 07/26/20 00:30 07/26/20 00:38 Guaifenesin 100 Mg/5 Ml Oral Liqd PO 200 mg Q4H PRN Administration Cough Magnesium Hydroxide 30 ml 07/25/20 13:24 Magnesium Hydroxide (Mom) Oral Liqd Udc PO Q4H PRN Constipation Methocarbamol 500 mg 07/25/20 13:26 07/26/20 06:02 Methocarbamol 500 Mg Tab PO 500 mg BID PRN Administration pain Metoclopramide HCl 10 mg 07/25/20 13:24 Metoclopramide 10 Mg Tab PO Q6H PRN Nausea And Vomiting Ondansetron HCl 4 mg 07/25/20 13:24 Ondansetron 4 Mg/2 Ml Inj IV Q8H PRN Nausea And Vomiting Promethazine HCl 25 mg 07/25/20 13:24 Promethazine 25 Mg Rect Supp IN Q6H PRN Nausea And Vomiting Sodium Chloride 10 ml 07/25/20 13:24 Sodium Chloride 0.9% 10 Ml Flush Syringe IV PRN PRN LINE FLUSH
[2020-07-26] MEDS ORDERED: ASPIRIN 325 MG TAB PO SCH (10:00)
[2020-07-26] MEDS: CLOPIDOGREL 75 MG TAB PO SCH (11:27)
--- NOTE | 2020-07-26 11:27 | Consultation ---
History of Present Illness Consult date: 07/26/20 Reason for Consult: left sede weakness History of present illness: I am weak History of present illness: 60 YO Female with Schizophrenia, Bipolar Disorder, Nicotine Dependence presents to ED for evaluation. Pt reports"Im weak". Pt states that she was in her usual state of health and experienced a sudden onset of left facial numbness with concomitant pain, left-sided weakness at approximate 1400 hrs. yesterday. Patie nt states that she awoke from sleep this morning with persistent symptoms. EMS was notified and upon arrival the patient was found to be in distress with a neurologic deficit. A code stroke was called and the patient was transported to [facility] for further care and evaluation of the aforementioned symptoms. The patient was seen and evaluated in the emergency department. All lab and imaging studies reviewed. Patient found to have a neurologic deficit and a code stroke was called. The patient was initiated on CVA protocol. The patient was placed in observation status and admitted to telemetry and initiated on stroke protocol care. Telemetry neurology consulted in ED. Patient denies fever, chills, chest pain, palpitation, productive cough, skin rash, recent ill contacts, or known exposure to COVID-19. No prior admission for review. All medication listed at time of admission has been reconciled. Advanced care planning conducted in ED. she smokes 1/2 ppd , no alcohol no recreational drug , denied Hx of CVA before. Past History Past Medical History: other (See HPI) Past Surgical History: total knee replacement Social history: , lives with family, smoking Family history: hypertension Medications and Allergies Allergies Allergy/AdvReac Type Severity Reaction Status Date / Time aspirin Allergy Hives Verified 07/25/20 13:35 Home Medications Medication Instructions Recorded Confirmed Last Taken Type Naproxen [Naprosyn TAB] 500 mg PO BID PRN #14 tablet 07/25/19 Unknown Rx methOCARBAMOL [Robaxin TAB] 500 mg PO BID PRN #12 tab 07/25/19 Unknown Rx Review of Systems Constitutional: no weight loss, no weight gain, no fever, no chills, no sweats Ears, nose, mouth and throat: no ear pain, no nose pain, no nasal discharge Breasts: no change in shape, no swelling, no mass Cardiovascular: no orthopnea, no palpitations, no rapid/irregular heart beat, no edema Respiratory: no cough, no cough with sputum Gastrointestinal: no abdominal pain, no vomiting, no diarrhea, no constipation, no hematemesis Genitourinary Female: no pelvic pain, no flank pain, no dysuria, no urinary frequency, no urgency Rectal: no pain, no incontinence, no bleeding Musculoskeletal: no neck stiffness, no neck pain, no shooting arm pain, no arm numbness/tingling, no shooting leg pain Integumentary: no rash, no redness, no sores, no wounds Neurological: weakness, numbness, change in speech, gait dysfunction, motor disturbance, no head injury, no ataxia, no migraines Psychiatric: no anxiety, no memory loss, no change in sleep habits, no sleep disturbances, no hypersomnia, no change in appetite Endocrine: no cold intolerance, no polyphagia, no excessive thirst, no polydipsia, no polyuria, no excessive sweating Hematologic/Lymphatic: no easy bruising, no easy bleeding, no lymphedema Allergic/Immunologic: no urticaria, no allergic rhinitis, no wheezing, no persistent infections, no anaphylaxis Past History Past Medical History: other (See HPI) Past Surgical History: total knee replacement Social history: , lives with family, smoking Family history: hypertension Medications and Allergies Allergies Allergy/AdvReac Type Severity Reaction Status Date / Time aspirin Allergy Hives Verified 07/25/20 13:35 Home Medications Medication Instructions Recorded Confirmed Last Taken Type Naproxen [Naprosyn TAB] 500 mg PO BID PRN #14 tablet 07/25/19 Unknown Rx methOCARBAMOL [Robaxin TAB] 500 mg PO BID PRN #12 tab 07/25/19 Unknown Rx Active Meds: Active Medications Acetaminophen (Acetaminophen 325 Mg Tab) 650 mg PO Q4H PRN PRN Reason: Pain, Mild (1-3) Atorvastatin Calcium (Atorvastatin 40 Mg Tab) 40 mg PO QHS EDITA Last Admin: 07/26/20 00:38 Dose: 40 mg Documented by: Bisacodyl (Bisacodyl 10 Mg Rect Supp) 10 mg MA QDAY PRN PRN Reason: Constipation Clopidogrel Bisulfate (Clopidogrel 75 Mg Tab) 75 mg PO QDAY EDITA Guaifenesin (Guaifenesin 100 Mg/5 Ml Oral Liqd) 200 mg PO Q4H PRN PRN Reason: Cough Last Admin: 07/26/20 00:38 Dose: 200 mg Documented by: Magnesium Hydroxide (Magnesium Hydroxide (Mom) Oral Liqd Udc) 30 ml PO Q4H PRN PRN Reason: Constipation Methocarbamol (Methocarbamol 500 Mg Tab) 500 mg PO BID PRN PRN Reason: pain Last Admin: 07/26/20 06:02 Dose: 500 mg Documented by: Metoclopramide HCl (Metoclopramide 10 Mg Tab) 10 mg PO Q6H PRN PRN Reason: Nausea And Vomiting Ondansetron HCl (Ondansetron 4 Mg/2 Ml Inj) 4 mg IV Q8H PRN PRN Reason: Nausea And Vomiting Promethazine HCl (Promethazine 25 Mg Rect Supp) 25 mg MA Q6H PRN PRN Reason: Nausea And Vomiting Sodium Chloride (Sodium Chloride 0.9% 10 Ml Flush Syringe) 10 ml IV PRN PRN PRN Reason: LINE FLUSH Physical Examination - Vital Signs Vital Signs: Vital Signs Temp Pulse Resp BP Pulse Ox 98.1 F 60 20 149/68 97 07/25/20 11:49 07/25/20 11:49 07/25/20 11:49 07/25/20 11:49 07/25/20 11:49 - Constitutional General appearance: comfortable - EENT EENT: Present: PERRL, mucous membranes moist - Respiratory Respiratory: Present: lungs clear, rhonchi - Cardiovascular Cardiovascular: Present: normal S1, normal S2 Extremities: Present: no peripheral edema bilatateraly, no clubbing, cyanosis - Gastrointestinal Gastrointestinal: Present: normoactive bowel sounds - Integumentary Integumentary: Present: normal - Neurologic Cranial nerve examination: PERRL, EOMI, other (subjective complain of left upper face and arm numbness ) Speech examination: other (change in speech character she is with whispering voice !!!!) Detailed motor examination: other (complaint of subjective left side weakness no pronator drift ,with questionable left leg weakness ) Results - Laboratory Findings CBC and BMP: 07/25/20 11:27 07/25/20 12:46 Abnormal Lab Findings: Abnormal Labs 07/25/20 07/25/20 07/26/20 11:27 11:27 04:06 MCH 27 L RDW 16.0 H Lymph % (Auto) 36.0 H Potassium 5.7 H POC Glucose Total Creatine Kinase 160 H Total Protein 6.0 L Albumin 3.5 L Triglycerides 368 H HDL Cholesterol 30 L 07/26/20 07:38 MCH RDW Lymph % (Auto) Potassium POC Glucose 112 H Total Creatine Kinase Total Protein Albumin Triglycerides HDL Cholesterol Assessment and Plan Assessment and Plan -# CVA (cerebral vascular accident) -pt. 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 -LDL#[id number] -allergy to ASA placed on Plavix # Depression -Continue medical management. - Outpatient psychiatry follow-up. -denied being harmful to self #Schizophrenia -Outpatient psychiatry follow-up, continue current management. # Nicotine dependence -Smoking cessation counseling, supportive care, behavior change counseling, +15 minutes. # DVT prophylaxis -SCD to bilateral lower extremities while in bed, patient is ambulatory # Advance care planning -Disease education conducted, care plan discussed, prognosis discussed, patient is full code, patient knowledges understanding agree with care plan, +30 minutes.
[2020-07-26] MEDS: NICOTINE 14 MG/24 HR PATCH TD SCH (17:09)
--- NOTE | 2020-07-27 02:48 | Vascular Lab Report ---
"DUPLEX DOPPLER ULTRASOUND CAROTID, BILATERAL INDICATION / CLINICAL INFORMATION: Stroke symptoms COMPARISON: CT angiogram of the neck, 07/25/2020 FINDINGS: Right carotid artery: CCA velocity: 88 cm/sec. ICA peak systolic velocity: 61 cm/sec. ICA/CCA PSV Ratio: 0.6 Right Vertebral Artery: Antegrade flow. Left carotid artery: CCA velocity: 140 cm/sec. ICA peak systolic velocity: 83 cm/sec. ICA/CCA PSV Ratio: 0.7 Left Vertebral Artery: Antegrade flow. IMPRESSION: 1. No evidence of hemodynamically significant stenosis of either carotid artery of disease (less than 50% stenosis). Velocity criteria are extrapolated from diameter data as defined by the Society of Radiologists in Ul trasound Consensus Conference, Radiology 2003; 229;340-346. Degree of || ICA PSV || Plaque || ICA/CCA Stenosis (%) || (cm/sec) || estimate (%) || PSV Ratio Normal ............. || ...<125........... || ...None......... || ...<2.0 <50................... || ...<125........... || ......<50......... || ...<2.0 50-69................ || ..125-230...... || ......>50......... || 2.0-4.0 >70 but <100... || >230.............. || .......>50........ || ...>4.0 Near occlusion || High/low/none || ...visible....... || variable Total occlusion || ....None........... || ..no lumen... || ....N/A Signer Name: Charla Hatch MD Signed: 07/27/2020 2:43 AM Workstation Name: [id number]"
[2020-07-27] MEDS: NICOTINE 14 MG/24 HR PATCH TD SCH (09:58)
[2020-07-27] MEDS: CLOPIDOGREL 75 MG TAB PO SCH (09:58)
[2020-07-27] MEDS ORDERED: CYCLOBENZAPRINE 10 MG TAB PO PRN (10:30)
--- NOTE | 2020-07-27 12:45 | Progress Note ---
Assessment and Plan Assessment and Plan -# CVA (cerebral vascular accident) -pt. 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 -LDL#[id number] -allergy to ASA placed on Plavix # Depression -Continue medical management. - Outpatient psychiatry follow-up. -denied being harmful to self #Schizophrenia -Outpatient psychiatry follow-up, continue current management. # Nicotine dependence -Smoking cessation counseling, supportive care, behavior change counseling, +15 minutes. # DVT prophylaxis -SCD to bilateral lower extremities while in bed, patient is ambulatory # Advance care planning -Disease education conducted, care plan discussed, prognosis discussed, patient is full code, patient knowledges understanding agree with care plan, +30 minutes. PLAN 1- Review MRI 2- Review Echo 3- Pt therapy 4-Neurosurgery openion 2mm possible Aneurysm Subjective Date of service: 07/27/20 Principal diagnosis: left side numbness Interval history: doing better today no weakness still complain of left side numbness --- MRI brain is pending US carotid <50% Bilateral Objective - Vital Sign Vital Signs - 12hr 07/27/20 07/27/20 07/27/20 03:39 04:52 06:59 Temperature 98.4 F 98.6 F Pulse Rate 60 62 Respiratory 16 16 Rate Blood Pressure 143/75 129/63 O2 Sat by Pulse 96 94 Oximetry 07/27/20 09:28 Temperature Pulse Rate Respiratory Rate Blood Pressure O2 Sat by Pulse 94 Oximetry - General Apperance Constitutional: comfortable - EENT EENT: PERRL, mucous membranes moist - Respiratory Respiratory: chest non-tender, lungs clear, rhonchi - Cardiovascular Cardiovascular: regular rate, normal S1, normal S2 Extremities: no peripheral edema bilat - Gastrointestinal Gastrointestinal: normoactive bowel sounds - Integumentary Integumentary: normal - Neurologic Cranial nerve examination: PERRL, EOMI, intact Speech examination: intact Detailed motor examination: grossly full strength in - Laboratory Findings CBC and BMP: 07/25/20 11:27 07/25/20 12:46 Abnormal Lab Findings: Abnormal Labs 07/25/20 07/25/20 07/26/20 11:27 11:27 04:06 MCH 27 L RDW 16.0 H Lymph % (Auto) 36.0 H Potassium 5.7 H POC Glucose Total Creatine Kinase 160 H Total Protein 6.0 L Albumin 3.5 L Triglycerides 368 H HDL Cholesterol 30 L 07/26/20 07/26/20 07/26/20 07:38 11:21 16:45 MCH RDW Lymph % (Auto) Potassium POC Glucose 112 H 112 H 115 H Total Creatine Kinase Total Protein Albumin Triglycerides HDL Cholesterol
--- NOTE | 2020-07-27 15:11 | Progress Note ---
Assessment and Plan Assessment and plan: CVA. Depression Schizophrenia Nicotine dependence DVT prophylaxis 07/26/2020. CTA of the head and neck revealed no significant focal stenosis involving cervical carotid or vertebral arteries. Head CT scan also negative. Neurology consulted. Follow-up echocardiogram and carotid Dopplers. Consider MRI per neurology recommendations. PT/OT/ST. Psychiatric evaluation for depression and schizophrenia. Continue Plavix and Lipitor. 07/27/2020 Patient presented with left sided weakness. Had stroke workup, but MRI Brain still pending. She is followed by Neurology. CTA Head revealed 2mm outpouching of clinoid segment of left ICA that was concerning for aneurysm. Neurology recommended Neurosurg eval. Will consult Dr. Aguila Brown at [facility]. History Interval history: Left sided weakness Hospitalist Physical - Physical exam Narrative exam: Gen: Not in acute distress, lying in bed,Obese HEENT: Normochephalic, atraumatic Neck:supple, No JVD Lungs:Clear to auscultation bilaterally, no rales, no wheeze Heart:S1 and S2 reg, no murmurs, rubs or gallop Abd: soft, non tender, non distended, normal bowel sounds Ext: No edema, no clubbing, no cyanosis Neuro:Awake,alert,oriented X 3,moves all ext - Constitutional Vitals: Temp Pulse Resp BP Pulse Ox 98.6 F 62 18 129/63 98 07/27/20 06:59 07/27/20 06:59 07/27/20 10:00 07/27/20 06:59 07/27/20 10:00 General appearance: Present: no acute distress, obese HEART Score - HEART Score Troponin: Troponin T < 0.010 ng/mL (0.00-0.029) 07/25/20 11:27 Results - Labs CBC & Chem 7: 07/25/20 11:27 07/25/20 12:46 Labs: Laboratory Last Values WBC 7.6 K/mm3 (4.5-11.0) 07/25/20 11:27 RBC 4.55 M/mm3 (3.65-5.03) 07/25/20 11:27 Hgb 12.3 gm/dl (10.1-14.3) 07/25/20 11:27 Hct 36.1 % (30.3-42.9) 07/25/20 11:27 MCV 79 fl (79-97) 07/25/20 11: MCH 27 pg (28-32) L 07/25/20 11: MCHC 34 % (30-34) 07/25/20 11:27 RDW 16.0 % (13.2-15.2) H 07/25/20 11:27 Plt Count 210 K/mm3 (140-440) 07/25/20 11:27 Lymph % (Auto) 36.0 % (13.4-35.0) H 07/25/20 11:27 [place] % (Auto) 6.6 % (0.0-7.3) 07/25/20 11: Eos % (Auto) 3.7 % (0.0-4.3) 07/25/20 11: Baso % (Auto) 1.0 % (0.0-1.8) 07/25/20 11: Lymph # (Auto) 2.7 K/mm3 (1.2-5.4) 07/25/20 11: [place] # (Auto) 0.5 K/mm3 (0.0-0.8) 07/25/20 11: Eos # (Auto) 0.3 K/mm3 (0.0-0.4) 07/25/20 11: Baso # (Auto) 0.1 K/mm3 (0.0-0.1) 07/25/20 11:27 Seg Neutrophils % 52.7 % (40.0-70.0) 07/25/20 11: Seg Neutrophils # 4.0 K/mm3 (1.8-7.7) 07/25/20 11:27 PT 12.7 Sec. (12.2-14.9) 07/25/20 11:27 INR 0.90 (0.87-1.13) 07/25/20 11:27 APTT 26.7 Sec. (24.2-36.6) 07/25/20 11: Thrombin Time 17.6 Sec. (15.1-19.6) 07/25/20 11:27 Sodium 138 mmol/L (137-145) 07/25/20 11:27 Potassium 4.6 mmol/L (3.6-5.0) 07/25/20 12:46 Chloride 104.0 mmol/L (98-107) 07/25/20 11:27 Carbon Dioxide 26 mmol/L (22-30) 07/25/20 11:27 Anion Gap 14 mmol/L 07/25/20 11:27 BUN 9 mg/dL (7-17) 07/25/20 11:27 Creatinine 0.7 mg/dL (0.6-1.2) 07/25/20 11:27 Estimated GFR > 60 ml/min 07/25/20 11:27 BUN/Creatinine Ratio 13 % 07/25/20 11:27 Glucose 87 mg/dL (65-100) 07/25/20 11:27 POC Glucose 115 mg/dL (70-105) H 07/26/20 16:45 Calcium 8.5 mg/dL (8.4-10.2) 07/25/20 11:27 Total Bilirubin 0.20 mg/dL (0.1-1.2) 07/25/20 11:27 AST 18 units/L (5-40) 07/25/20 11:27 ALT 13 units/L (7-56) 07/25/20 11:27 Alkaline Phosphatase 129 units/L (35-129) 07/25/20 11:27 Total Creatine Kinase 160 units/L (30-135) H 07/25/20 11:27 CK-MB (CK-2) 1.3 ng/mL (0.0-4.0) 07/25/20 11:27 CK-MB (CK-2) Rel Index 0.8 (0-4) 07/25/20 11:27 Troponin T < 0.010 ng/mL (0.00-0.029) 07/25/20 11:27 Total Protein 6.0 g/dL (6.3-8.2) L 07/25/20 11:27 Albumin 3.5 g/dL (3.9-5) L 07/25/20 11:27 Albumin/Globulin Ratio 1.4 % 07/25/20 11:27 Triglycerides 368 mg/dL (2-149) H 07/26/20 04:06 Cholesterol 166 mg/dL (50-199) 07/26/20 04:06 LDL Cholesterol Direct 66 mg/dL (50-130) 07/26/20 04:06 HDL Cholesterol 30 mg/dL (40-59) L 07/26/20 04:06 Cholesterol/HDL Ratio 5.53 % 07/26/20 04:06 Hernandez/IV: Voiding Method External Female Catheter Active Medications - Current Medications Current Medications: Generic Name Dose Route Start Last Admin Trade Name Freq PRN Reason Stop Dose Admin Acetaminophen 650 mg 07/25/20 13:24 Acetaminophen 325 Mg Tab PO Q4H PRN Pain, Mild (1-3) Atorvastatin Calcium 40 mg 07/25/20 22:00 07/26/20 21:49 Atorvastatin 40 Mg Tab PO 40 mg QHS EDITA Administration Bisacodyl 10 mg 07/25/20 13:24 Bisacodyl 10 Mg Rect Supp OR QDAY PRN Constipation Clopidogrel Bisulfate 75 mg 07/26/20 10:00 07/27/20 09:58 Clopidogrel 75 Mg Tab PO 75 mg QDAY EDITA Administration Cyclobenzaprine HCl 10 mg 07/27/20 10:30 07/27/20 10:12 Cyclobenzaprine 10 Mg Tab PO 10 mg Q8H PRN Administration Muscle Spasm Guaifenesin 200 mg 07/26/20 00:30 07/26/20 00:38 Guaifenesin 100 Mg/5 Ml Oral Liqd PO 200 mg Q4H PRN Administration Cough Magnesium Hydroxide 30 ml 07/25/20 13:24 Magnesium Hydroxide (Mom) Oral Liqd Udc PO Q4H PRN Constipation Methocarbamol 500 mg 07/25/20 13:26 07/26/20 06:02 Methocarbamol 500 Mg Tab PO 500 mg BID PRN Administration Muscle Spasm Metoclopramide HCl 10 mg 07/25/20 13:24 Metoclopramide 10 Mg Tab PO Q6H PRN Nausea And Vomiting Nicotine 14 mg 07/26/20 16:00 07/27/20 09:58 Nicotine 14 Mg/24 Hr Patch TD 14 mg QDAY [facility] Administration Ondansetron HCl 4 mg 07/25/20 13:24 Ondansetron 4 Mg/2 Ml Inj IV Q8H PRN Nausea And Vomiting Promethazine HCl 25 mg 07/25/20 13:24 Promethazine 25 Mg Rect Supp OR Q6H PRN Nausea And Vomiting Sodium Chloride 10 ml 07/25/20 13:24 Sodium Chloride 0.9% 10 Ml Flush Syringe IV PRN PRN LINE FLUSH
--- NOTE | 2020-07-27 17:56 | Magnetic Resonance Report ---
MRI BRAIN WITHOUT CONTRAST INDICATION / CLINICAL INFORMATION: r/o stroke--left sided weakness. TECHNIQUE: Multiplanar, multisequence MR images of the brain were obtained. Contrast: mL administered intravenously. COMPARISON: None available. FINDINGS: BRAIN / INTRACRANIAL CONTENTS: Ventricles and cortical sulci are normal in size and configuration. Th ere is no mass effect. No evidence of intracranial hemorrhage or extra-axial fluid collection is seen . A few scattered small foci of white matter hyperintensity are observed in the periventricular, deep and subcortical white matter. These are nonspecific findings perhaps related to early microvascular ischemic change. No significant areas of abnormal brain parenchymal signal intensity are identified. There is no indication of remote cortical infarction. Diffusion weighted scans are negative. There is no indication of acute ischemic injury. The brainstem and cerebellum have an unremarkable appearance. MIDLINE STRUCTURES:No abnormalities are seen to involve the pituitary gland. Pineal region has an unr emarkable appearance. CRANIOCERVICAL JUNCTION: No abnormalities are identified at the craniocervical junction. VASCULAR FLOW-VOIDS: Normal flow-voids are present within the major intracranial vessels. ORBITS: The orbits have an unremarkable appearance. SINUSES / MASTOIDS: Inflammatory mucosal changes are present in ethmoid air cells bilaterally. Mucosa l thickening is also observed in the left maxillary sinus and sphenoid sinus. Frontal sinuses did not develop in this individual. IMPRESSION: 1. No significant abnormality on MRI brain. 2. No indication of recent or remote infarction. No evidence of hemorrhage or mass lesion. Signer Name: Teo Palmer MD Signed: 07/27/2020 5:51 PM Workstation Name: [id number]
[2020-07-27] MEDS ORDERED: ALPRAZolam 1 MG TAB PO PRN (22:00)
[2020-07-28 06:00] LABS: BUN/Creatinine Ratio 16; Blood Urea Nitrogen 11 mg/dL (7-17); Calcium 9.3 mg/dL (8.4-10.2); Hemolysis Index 23
[2020-07-28 08:37] VITALS: BP 124/77
[2020-07-28] MEDS: CLOPIDOGREL 75 MG TAB PO SCH (09:08)
[2020-07-28] MEDS: NICOTINE 14 MG/24 HR PATCH TD SCH (09:09)
--- NOTE | 2020-07-28 11:04 | Discharge Summary ---
Providers - Providers Date of Admission: 07/26/20 16:55 Date of discharge: 07/28/20 Attending physician: RAIZA IRWIN 07/25/20 13:24 Occupational Therapy Evaluate and Treat [CONS] Routine Comment: Reason For Exam: Neuro deficits Physical Therapy Evaluation and Treat [CONS] Routine Comment: Reason For Exam: Neuro deficits 07/25/20 13:26 Speech Therapy Evaluation and Treat [CONS] Routine Reason For Exam: swallow eval 07/26/20 09:26 Consult to Physician [CONS] Routine Comment: Consulting Provider: CRISTINA FULLER Physician Instructions: Reason For Exam: CVA 07/27/20 15:47 Consult to Physician [CONS] Routine Comment: Consulting Provider: AGUILA GASCA II Physician Instructions: Reason For Exam: possible 2mm aneurysm clinoid segment left ICA Primary care physician: ORACLE BPM DEVELOPER Hospitalization Condition: Fair Hospital course: Patient is 60 YO Female with Schizophrenia, Bipolar Disorder, Nicotine De pendence presents to ED for evaluation. Pt reported "I'm weak". Pt states that she was in her usual state of health and experienced a sudden onset of left facial numbness with concomitant pain, left-sided weakness at approximate 1400 hrs the day before. Patient states that she awoke from sleep this morning with persistent symptoms. EMS was notified and upon arrival the patient was found to be in distress with a neurologic deficit. A code stroke was called and the patient was transported to [facility] for further care and evaluation of the aforementioned symptoms. The patient was seen and evaluated in the emergency department. All lab and imaging studies reviewed. Patient found to have a neurologic deficit and a code stroke was called. The patient was initiated on CVA protocol. The patient was placed in observation status and admitted to telemetry and initiated on stroke protocol care. Telemetry neurology consulted in ED. Patient was admitted, evaluated by Neurology. CTA head revealed 2mm out-pouching of clinoid segment of left ICA that was concerning for aneurysm, therefore Dr. Aguila Gasca , Neurosurgeon was consulted. I called and discussed case with him and he recommends patient to follow up in his office. MRI Brain was unremarkable. Final diagnosis TIA. She was subsequently discharged home to follow as outpatient. I discussed with her that she needs to follow with Dr. Gasca to evaluate for possible aneurysm in Brain. 07/26/2020. CTA of the head and neck revealed no significant focal stenosis involving cervical carotid or vertebral arteries. Head CT scan also negative. N eurology consulted. Follow-up echocardiogram and carotid Dopplers. Consider MRI per neurology recommendations. PT/OT/ST. Psychiatric evaluation for depression and schizophrenia. Continue Plavix and Lipitor. 07/27/2020 Patient presented with left sided weakness. Had stroke workup, but MRI Brain still pending. She is followed by Neurology. CTA Head revealed 2mm outpouching of clinoid segment of left ICA that was concerning for aneurysm. Neurology recommended Neurosurg eval. Will consult Dr. Aguila Gasca at [facility]. 07/28/2020 MRI Brain negative. Will discharge home. Final diagnosis TIA. Disposition: DC-01 TO HOME OR SELFCARE Final Discharge Diagnosis (Prints w/discharge instructions): 1.TIA - Discharge Diagnoses (1) TIA (transient ischemic attack) Status: Acute (2) Schizophrenia Status: Chronic Qualifiers: Schizophrenia type: unspecified Qualified Code(s): F20.9 - Schizophrenia, unspecified Core Measure Documentation - Palliative Care Palliative Care/ Comfort Measures: Not Applicable - Core Measures Any of the following diagnoses?: none Exam - Constitutional Vitals: Temp Pulse Resp BP Pulse Ox 98.4 F 64 18 124/77 98 07/28/20 07:31 07/28/20 07:31 07/28/20 08:29 07/28/20 07:31 07/28/20 09:07 Plan Activity: advance as tolerated Diet: low fat, low cholesterol, low salt Durable Medical Equipment Needed Upon Discharge: other (1.Follow up with PCP in 1 week. Follow up with Dr. Aguila Gasca, Neurosurgeon [phone] within 1 week) Care Plan Goals: 1.Follow up with PCP in 1 week 2.Follow up with Dr. Aguila Gasca Neurosurgery [phone] within 1 week Plan of Treatment: 1.Follow up with PCP in 1 week 2.Follow up with Dr. Aguila gasca Neurosurgery [phone] within 1 week Follow up with: PRIMARY CARE, [Primary Care Provider] - 3-5 Days Prescriptions: AtorvaSTATin [Lipitor] 20 mg PO QHS #30 tab Clopidogrel [Plavix] 75 mg PO QDAY #30 tablet
--- NOTE | 2020-07-29 13:02 | Electrocardiograph Report ---
[facility] Test Date: 2020-07-25 Test Time: 11:40:36 Pat Name: CHRISTELLE JOHN Department: Room: A475 1 Gender: F Project Management Advisor: GRACE : [id number] Requested By: BIBI URIOSTEGUI Order Number: [id number] Reading MD: Nathaniel Lockhart Measurements Intervals [place] Rate: 58 P: 60 WI: 173 QRS: 52 QRSD: 91 T: 30 QT: 456 QTc: 449 Interpretive Statements Sinus bradycardia with a regular rate Low voltage, precordial leads No previous ECG available for comparison Electronically Signed On 07-29-2020 13:02:43 EDT by Nathaniel Lockhart
== END 2020-07-28 11:55 | disposition home or self-care (01) | DRG 65 ==
LOC: ED 10:45 → 4A 13:24 → OBSVTOIN 07-26 16:55
PROVIDERS: ADMIT Internal Medicine; ATTEND Internal Medicine
DX: I63.9 Cerebral infarction, unspecified (principal); G81.94 Hemiplegia, unspecified affecting left nondominant side; F20.9 Schizophrenia, unspecified; F17.200 Nicotine dependence, unspecified, uncomplicated; Z96.659 Presence of unspecified artificial knee joint; F31.9 Bipolar disorder, unspecified; E87.5 Hyperkalemia; R29.706 NIHSS score 6; Z82.49 Family history of ischemic heart disease and other diseases of the circulatory system; Z88.8 Allergy status to other drugs, medicaments and biological substances
CPT/HCPCS: 36415; 70450; 70496; 70498; 70551; 71045; 80048; 80053; 80061; 82550; 82553; 82962; 84132; 84484; 85025; 85610; 85670; 85730; 93005; 93306; 93880; 99406; G0378; Q9967